=== PATIENT | female | born 1945 | race Asian ===

== ENCOUNTER 2017-04-16 14:30 | Emergency (ER) | payer MEDICARE ==
[~2017-04-16] VITALS: Ht 147.3 cm; Wt 51.8 kg
[2017-04-16 14:37] VITALS: BP 147/89
== END 2017-04-16 16:51 | disposition home or self-care (01) ==
LOC: ED 16:45
DX: J02.8 Acute pharyngitis due to other specified organisms (principal); B97.89 Other viral agents as the cause of diseases classified elsewhere
CPT/HCPCS: 71046; 99284